=== PATIENT | female | born 1935 | race Caucasian/White ===

== ENCOUNTER → 2017-06-02 | Day surgery (SDC) | payer MEDICARE ==
[~2017-06-02] MED LIST: ALEV220T14 PO; ARMO90TA PO; BEDSMIS4; BUPIVACAINE HCL PF 0.5% 30 ML VIAL ONE; CALC600T12 PO; HYZA100T6 PO; KRIL1CAP9 PO; LEVO88TA2 PO; LOSA100T2 PO; MEPERIDINE HCL 25 MG/ML VIAL IV ONE; METO200T3 PO; MULT1TAB46; MULTTAB67 PO; OXYC1SOL5 PO; PROPOFOL 200 MG/20 ML AMP IV ONE; SHOWER/TUB CHAIR LG; TRIAMCINOLONE ACETONIDE 40 MG/ML VIAL I-ARTICULR ONE; VITA10002 PO; WALKER ROLLING; WARF1TAB PO; WARF4TAB52 PO
--- NOTE | 2017-06-02 11:18 | M6 ---
cc: QUINN VIDAL M.D. DATE: 06/02/2017 DATE OF : 1935. PROCEDURE Fluoroscopically guided right cervical facet joints (right C2-3, C3-4, C4-5 and C5-6. History and physical was completed and signed. Consent was signed. Procedure site was marked. Medications were listed and reconciled. Pain score was recorded. Allergies were noted. Time out was taken. Fluoroscopy time was recorded where applicable. Sedation was administered or directed by Dr. Vidal. The patient was given oxygen. The patient was monitored by a registered nurse. Total procedure time was greater than 15 minutes. IV was started, blood pressure cuff, pulse oximeter and EKG were applied. The patient was placed in the prone position on a Alvaro table sedated with small amounts of propofol titrated to effect. Vital signs were monitored and remained stable throughout the procedure cervical area was prepped with alcohol and 10% Betadine solution and draped with sterile drapes. Fluoroscopy was used to visualize the cervical facet joints at C2-3, C3-4, C4-5 and C5-6. Separate sterile 3-1/2-inch 25-gauge spinal needles were advanced into these joints under fluoroscopic guidance. There was negative aspiration for blood or any other type of fluid and at each location the patient was given 1 mL of 0.5% Marcaine 10 mg of Kenalog. Following the procedure the patient was taken to the recovery room with stable vital signs neurologically intact. She will be evaluated immediately and with followup to determine if she has a subjective decrease in the usual pain and a corresponding objective increase her functional capabilities. W. MD NELDA Carmichael/darlene /9:42 AM /11:13 AM
== END | disposition home or self-care (01) ==
LOC: PHSDC 07:58
PROVIDERS: ATTEND Pain Medicine Interventional Pain Medicine
DX: M54.2 Cervicalgia (principal); I10 Essential (primary) hypertension; E07.9 Disorder of thyroid, unspecified; G47.30 Sleep apnea, unspecified; Z85.42 Personal history of malignant neoplasm of other parts of uterus; Z79.01 Long term (current) use of anticoagulants
CPT/HCPCS: 64490; 64491; 64492; 99152; J2175; J3301